=== PATIENT | female | born 1950 | race Hispanic/Latino ===

== ENCOUNTER 2018-02-20 09:23 | Day surgery (SDC) | payer BC ==
[2018-02-08 15:09] VITALS: BMI 26.6
[2018-02-20] MEDS ORDERED: Sodium Chloride 0.9% 1,000 ML IV SCH (09:30)
[2018-02-20] MEDS ORDERED: Propofol 10 mg/ml Inj (20 ML) ONE (11:52)
[2018-02-20 13:08] VITALS: O2SAT 99
[2018-02-20 14:27] VITALS: BP 123/63; PULSE 56; RESP 18; TEMP 98.5
== END 2018-02-20 14:07 | disposition home or self-care (01) ==
LOC: ENDO 09:23
PROVIDERS: ATTEND Internal Medicine Gastroenterology
DX: D12.5 Benign neoplasm of sigmoid colon (principal); K57.30 Diverticulosis of large intestine without perforation or abscess without bleeding; K64.8 Other hemorrhoids; K29.50 Unspecified chronic gastritis without bleeding; K29.80 Duodenitis without bleeding; I10 Essential (primary) hypertension; D51.0 Vitamin B12 deficiency anemia due to intrinsic factor deficiency; D50.9 Iron deficiency anemia, unspecified
CPT/HCPCS: 43239; 45380; 88305; 88342; J2001; J2704; J7040 ×2